=== PATIENT | male | born 1995 | race Caucasian/White ===

== ENCOUNTER 2018-06-11 18:41 | Emergency (ER) | payer BC ==
[2018-06-11 18:52] VITALS: BP 133/83
--- NOTE | 2018-06-11 19:57 | EDM.PDOC ---
ED HPI GENERAL MEDICAL PROBLEM - General Chief Complaint: Chest Pain Stated Complaint: LEFT SIDE OF CHEST PALPATATION 2 DAYS NEAR HEART Time Seen by Provider: 06/11/18 19:08 Source of Information: Reports: Patient, Family (Brother), RN Notes Reviewed History Limitations: Reports: No Limitations - History of Present Illness INITIAL COMMENTS - FREE TEXT/NARRATIVE: The patient states that he has felt a spasm in the lateral aspect of his left pectoralis muscle, on and off over the past 2 or 3 days. The spasm sensation last for only a second or 2, but he may have as many as 50 a day. He states that he does not notice in sensation if he is busy or occupied, but he does notice it if he is just lying about. Since he was busy yesterday, he did not notice any, but he was not busy today, so he has. He has no associated shortness of breath, cough, or fever. 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 The patient also acknowledges that he has a history of heroin and opioid addiction, currently on Suboxone - note that one of the side effects of opioids is muscle spasm. The patient acknowledges that he is very anxious, and is concerned that any ache or pain may be due to something serious. The patient does not have a PCP. - Related Data Allergies Allergy/AdvReac Type Severity Reaction Status Date / Time No Known Allergies Allergy Verified 02/08/16 15:09 Home Meds: Home Meds Buprenorphine HCl/Naloxone HCl [Suboxone 12 mg-3 mg Sl Film] 12 mg PO DAILY [History] Past Medical History Psychiatric History: Reports: Addiction (Heroin/opioids) - Past Surgical History HEENT Surgical History: Reports: Oral Surgery (wisdom teeth extraction) Social & Family History - Tobacco Use Smoking Status *Q: Never Smoker - Caffeine Use Caffeine Use: Reports: Coffee - Alcohol Use Alcohol Use History: Yes Alcohol Use Frequency: Rarely - Recreational Drug Use Recreational Drug Use: No - Living Situation & Occupation Living situation: Reports: Single, with Family (Brother) 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 ED EXAM, GENERAL - Physical Exam Exam: See Below Exam Limited By: No Limitations General Appearance: Alert, WD/WN, Anxious Eye Exam: Bilateral Eye: EOMI, Normal Inspection Ears: Normal External Exam, Hearing Grossly Normal Nose: Normal Inspection, No Blood Throat/Mouth: Normal Inspection, Normal Lips, Normal Voice, No Airway Compromise Head: Atraumatic, Normocephalic Neck: Normal Inspection, Full Range of Motion Respiratory/Chest: No Respiratory Distress, Lungs Clear, Normal Breath Sounds, No Accessory Muscle Use, Chest Non-Tender, Other (The muscle spasm was not reproducible with palpation of the left pectoralis muscle or flexing of the pectoralis muscle, however, it was introduced when I had the patient breathe deeply) Cardiovascular: Normal Peripheral Pulses, Regular Rate, Rhythm, No Edema, No Gallop, No JVD, No Murmur, No Rub Peripheral Pulses: 4+: Radial (L), Radial (R) GI/Abdominal: Normal Bowel Sounds, Soft, Non-Tender, No Organomegaly, No Distention, No Abnormal Bruit, No Mass (Male) Exam: Deferred Rectal (Males) Exam: Deferred Back Exam: Normal Inspection, Full Range of Motion, NT Extremities: Normal Inspection, Normal Range of Motion, No Pedal Edema, Normal Capillary Refill Neurological: Alert, Oriented, Normal Cognition, No Motor/Sensory Deficits Psychiatric: Anxious Skin Exam: Warm, Dry, Intact, Normal Color, No Rash Course - Vital Signs Last Recorded V/S: Last Vital Signs Temp 37.5 C 06/11/18 18:51 Pulse 89 06/11/18 18:51 Resp 20 06/11/18 18:51 BP 133/83 06/11/18 18:51 Pulse Ox 100 06/11/18 18:51 - Re-Assessments/Exams Free Text/Narrative Re-Assessment/Exam: 06/11/18 19:51 By history and physical examination, the patient's lateral left pectoralis muscle pain is due to a muscle spasm, however, just to be on the safe side, I offered to perform a chest radiograph, which the patient initially agreed to, but changed his mind as I was entering the order. The patient acknowledges that he is quite anxious and worries that every ache or pain is due to something serious. We discussed why I can be confident that this is not cardiac in etiology. I will refer the patient to Dr. Gunter, who the patient can establish as a PCP. Departure - Departure Time of Disposition: 19:52 Disposition: Home, Self-Care 01 Condition: Good Clinical Impression: Musculoskeletal chest pain - Discharge Information *PRESCRIPTION DRUG MONITORING PROGRAM REVIEWED*: Not Applicable *COPY OF PRESCRIPTION DRUG MONITORING REPORT IN PATIENT [place]: Not Applicable Referrals: PCP,None [Primary Care Provider] - Lori Gunter MD [Physician] - Additional Instructions: You were seen in the emergency room for the sensation of a muscle spasm felt in your left pectoralis muscle. Based on your history and physical examination, your symptoms are due to a muscle spasm. They are not due to a problem with your heart. Follow-up with Dr. Lori Gunter as a primary care physician. If any other problems, please do not hesitate to return to the ER.
== END 2018-06-11 20:03 | disposition home or self-care (01) ==
LOC: JD.ED 18:41
DX: R07.89 Other chest pain (principal); Z79.899 Other long term (current) drug therapy
CPT/HCPCS: 99284

== ENCOUNTER 2024-03-18 22:34 | Emergency (ER) | payer BC, OTHER ==
[2024-03-18 22:55] LABS: BASOPHILS ABSOLUTE AUTO 0.1 K/mm3 (0.0-0.2); BASOPHILS PERCENT AUTO 0.5 % (0.0-1.0); EOSINOPHILS ABSOLUTE AUTO 0.3 K/mm3 (0.0-0.4); EOSINOPHILS PERCENT AUTO 2.3 % (0.0-6.0); HEMATOCRIT 37.4 % (42.0-52.0); HEMOGLOBIN 13.1 gm/dl (14.0-18.0); IMMATURE GRAN ABSOLUTE AUTO 0.02 K/mm3 (0.00-0.05); IMMATURE GRAN PERCENT AUTO 0.2 % (0.0-0.4); LYMPHOCYTES ABSOLUTE AUTO 4.9 K/mm3 (1.0-4.8); LYMPHOCYTES PERCENT AUTO 38.3 % (24.0-44.0); MEAN CORPUSCULAR HEMOGLOBIN 29.4 pg (28.0-32.0); MEAN CORPUSCULAR VOLUME 83.9 fl (83.0-99.0); MEAN PLATELET VOLUME 9.2 fl (9.4-12.4); MONOCYTES ABSOLUTE AUTO 1.2 K/mm3 (0.0-0.8); MONOCYTES PERCENT AUTO 8.9 % (0.0-8.0); NEUTROPHILS ABSOLUTE AUTO 6.4 K/mm3 (1.8-7.7); NEUTROPHILS PERCENT AUTO 49.8 % (41.0-71.0); PLATELET COUNT,PLT 621 K/mm3 (150-400); RED BLOOD CELL COUNT 4.46 M/mm3 (4.52-5.90); WHITE BLOOD CELL COUNT,WBC 12.85 K/mm3 (3.9-11.3)
[2024-03-18 23:13] LABS: INR 1.03; PROTHROMBIN TIME 10.9 SECONDS (9.7-12.0)
[2024-03-18 23:15] LABS: PTT,PARTIAL THROMBOPLSTIN TIME 26.9 SECONDS (21.7-31.4)
[2024-03-18 23:19] LABS: ANION GAP 16.3 (5-15); BILIRUBIN TOTAL 0.5 mg/dL (0.2-1.0); BUN/CREATININE RATIO 12.3 (14-18); CALCIUM 9.6 mg/dL (8.5-10.1); CREATININE 1.3 mg/dL (0.7-1.3); EST CRCL DRUG DOSING (CG) 92.03 mL/min; POTASSIUM,K 3.3 mEq/L (3.5-5.1); PROTEIN TOTAL,TP 7.9 g/dl (6.4-8.2)
[2024-03-18] MEDS: Sodium Chloride 0.9% 100 ML IV SCH (23:35)
[2024-03-18] MEDS: Iopamidol 755 Mg/ML 100 ML Bottle IVPUSH ONE (23:35)
[2024-03-18] MEDS: Sodium Chloride 0.9% 10 ML Syringe FLUSH ONE (23:36)
[2024-03-18] MEDS: Lidocaine 2% 11 ML Jelly Filled Syringe MUCMEM ONE (23:37)
[2024-03-18] MEDS: Lidocaine 2% 11 ML Jelly Filled Syringe ONE (23:37)
[2024-03-19] MEDS: HYDROmorphone 0.5 MG/0.5 ML Syringe IVPUSH ONE (01:35)
[2024-03-19] MEDS: HYDROmorphone 1 MG/ML Syringe IVPUSH ONE ×2 (03:04→05:45)
[2024-03-19 04:41] LABS: HEMATOCRIT 34.3 % (42.0-52.0); HEMOGLOBIN 12.1 gm/dl (14.0-18.0)
[2024-03-19 06:07] VITALS: BP 140/87; PULSE 104
== END 2024-03-19 05:55 ==
LOC: JD.ED 22:34
DX: R31.0 Gross hematuria (principal); J45.909 Unspecified asthma, uncomplicated; K21.9 Gastro-esophageal reflux disease without esophagitis; Z79.899 Other long term (current) drug therapy; Z91.018 Allergy to other foods
CPT/HCPCS: 36415; 51702; 72191; 74175; 80053; 85014; 85018; 85025; 85610; 85730; 86850; 86900; 86901; 96374; 96376; 99285; A9270; J1170; J3490; Q9967